=== PATIENT | female | born 1935 | race Caucasian/White ===

== ENCOUNTER → 2019-02-04 | Day surgery (SDC) | payer OTHER, MEDICAID ==
[~2019-02-04] VITALS: Ht 160 cm; Wt 86.2 kg
[~2019-02-04] MED LIST: AMIO200T33 PO; FENO160T8 PO; LEVO112T4 PO; LIDOCAINE VISCOUS 2% 15ML UD MT ONE; LISI30TA36 PO; METO-158 PO; MIDAZOLAM HCL 1MG/1ML-2 ML VIAL IV ONE; OMEP20TA PO; RIV15T PO; [UNRECOGNIZED DRUG - CODE] OR; diphenhdrAMINE HCL 50 MG/1 ML VL ONE; fentaNYL CITRATE 100 MCG/2 ML VL IV ONE
== END | disposition home or self-care (01) ==
LOC: CATH 06:46
PROVIDERS: ATTEND Internal Medicine
DX: I08.3 Combined rheumatic disorders of mitral, aortic and tricuspid valves (principal); I48.91 Unspecified atrial fibrillation; Q21.1 Atrial septal defect; Z88.5 Allergy status to narcotic agent; Z88.1 Allergy status to other antibiotic agents; Z88.8 Allergy status to other drugs, medicaments and biological substances; Z82.49 Family history of ischemic heart disease and other diseases of the circulatory system; Z79.899 Other long term (current) drug therapy; Z79.82 Long term (current) use of aspirin; Z79.01 Long term (current) use of anticoagulants
CPT/HCPCS: 92960; 93005; 93312; J1200; J2250; J3010; J7030; 99152